=== PATIENT | female | born 1980 | race Caucasian/White ===

== ENCOUNTER 2025-05-13 14:05 | Emergency (ER) | payer OTHER, SELFPAY ==
[2025-05-13] VITALS (14 sets, daily range): BP systolic 111–151; BP diastolic 68–94; PULSE 57–95; RESP 18–20; TEMP 36.3–36.7; O2SAT 92–99; BMI 33.6
--- NOTE | 2025-05-13 14:14 | PC.NURSE ---
Patients FSBS is 89
--- NOTE | 2025-05-13 14:15 | ECG_ITS ---
APPROVED REPORT Exam: Resting ECG HR:81 bpm ECG Measurements Heart Rate 81 AXES AK 159 P 65 QRSd 98 QRS 51 QT 342 T 58 QTc 379 Conclusion SINUS RHYTHM WITH OCCASIONAL VENTRICULAR PREMATURE COMPLEXES No STEMI Electronically signed by : NISHANT PASCAL, 05/14/2025 03:40:36
--- NOTE | 2025-05-13 14:19 | ED_ITS ---
<Statement entered by Sima Pierce DO - 05/14/25 00:23> I was consulted by the SHAKA, and we discussed the complexity of problems being addressed. I approve the treatment and management plan for this patient's care in the emergency department, thus performing a substantial portion of the medical decision making. Sima Pierce DO Discharge Plan Disposition Patient Disposition: Home, Self-Care Referrals Follow up/Referrals: Provider,Referral, MD [Primary Care Provider, Medical] - See instructions Clinical Impressions Clinical Impression: Palpitations, Nausea & vomiting Print Language Print Language: Lithuanian Discharge ED Provider: Francisco Walker <Chanel Bernabe APRN - Last Filed: 05/13/25 21:42> General Chief Complaint: Dizziness Stated Complaint: Cold Sweats;Indegestion; Dry Heaving; Shaking Time Seen by Provider: 05/13/25 14:07 History of Present Illness HPI narrative: Brett rios is a 44-year-old female past medical history significant for type 2 diabetes, neuropathy who presents emergency room today with complaints of epigastric pain, cold sweats, shortness of breath. States her epigastric pain radiates into her back. Symptoms started about an hour prior to arrival. Reports nausea but no vomiting. No diarrhea noted. No abdominal pain per se, just reports of burning in her epigastric/lower chest region. No ripping or tearing sensation anywhere. Stated that she feels like she gets extremely hot and then will become profusely diaphoretic and get chills. Denies any known sick contacts. Does smoke marijuana daily. No family history of sudden cardiac or CAD, no personal history of CAD. Has not had a stress test or an echo done, does not take any blood thinners. Related Data Allergies Allergy/AdvReac Type Severity Reaction Status Date / Time No Known Allergies Allergy Verified 05/13/25 14:46 PFSH <Chanel Bernabe APRN - Last Filed: 05/13/25 21:42> FORMERLY [facility], [facility] Disclaimer: The information contained in this section may have been updated after the patient was seen, as this information can be updated by other users. Social History (Updated 05/13/25 @ 21:41 by Chanel Bernabe APRN) Smoking Status: Current every day smoker alcohol intake: current current occupational status: other Travel in the last 8 weeks?: None Have you lived/traveled outside US in past 30 days?: No Contact w/someone who lives/traveled outside US past 30 days?: No Exposure to someone with infectious disease in past 14 days?: No Do you have a fever (greater than 100.4 F or 38 C)?: No Have you tested positive for COVID-19?: No Exposed to someone with COVID-19 in past 14 days?: No Do you have a sore throat?: No Do you have a cough?: No Do you have any weakness?: No Do you have any diarrhea?: No Are you experiencing any unusual bleeding?: No Do you have any muscle aches/pain?: No Do you have any abdominal pain?: No Are you experiencing loss of taste or smell?: No <Chanel Bernabe APRN - Last Filed: 05/13/25 21:42> ROS Obtained: Yes All systems reviewed & no additional complaints except as documented Physical Exam <Chanel Bernabe APRN - Last Filed: 05/13/25 21:42> General General appearance: alert and in no apparent distress Head Head exam: atraumatic and normocephalic Eye Eye exam: Present PERRL and EOMI Neck Neck exam: Present trachea midline Chest Chest inspection: Present symmetric chest wall rise Respiratory Respiratory exam: Present normal lung sounds bilaterally Cardiovascular Cardiovascular exam: Present regular rate and normal rhythm Abdominal Exam Abdominal exam: Present soft and normal bowel sounds; Absent tenderness Extremities Exam Extremities exam: Present normal inspection and full ROM Neurological Exam Neurological exam: Present alert and oriented X3 Skin Skin exam: Present warm, dry and intact HEART Score <Chanel Bernabe APRN - Last Filed: 05/13/25 21:42> HEART Score HEART Score assessment performed?: Yes HEART Score: 3 <Sima Pierce DO - Last Filed: 05/14/25 00:24> HEART Score HEART Score: 3 Critical Care <Chanel Bernabe APRN - Last Filed: 05/13/25 21:42> Critical Care Time Critical Care Time: No Medical Decision Making <Chanel Bernabe APRN - Last Filed: 05/13/25 21:42> Srinivasan Inquiry Pt receiving controlled substance: No Vital Signs Vital Signs: 05/13/25 14:40 05/13/25 14:43 05/13/25 15:44 Temperature 98.1 F Temperature Source Oral Pulse Rate 82 83 Pulse Rate [Radial] 57 L Respiratory Rate 18 Blood Pressure 144/91 H 138/88 Blood Pressure [Right Arm] 151/94 H Blood Pressure Mean Blood Pressure Mean [Right Arm] 113 Blood Pressure Source [Right Arm] Automatic Cuff Blood Pressure Position [Right Arm] Sitting 02 Sat by Pulse Oximetry 94 L 99 97 Oxygen Delivery Method Room Air 05/13/25 16:00 05/13/25 17:00 05/13/25 17:20 Temperature Temperature Source Pulse Rate 82 77 84 Pulse Rate [Radial] Respiratory Rate Blood Pressure 134/87 118/83 123/82 Blood Pressure [Right Arm] Blood Pressure Mean 102 Blood Pressure Mean [Right Arm] Blood Pressure Source [Right Arm] Blood Pressure Position [Right Arm] 02 Sat by Pulse Oximetry 97 95 92 L Oxygen Delivery Method 05/13/25 17:53 05/13/25 18:42 05/13/25 19:25 Temperature Temperature Source Pulse Rate 82 79 95 H Pulse Rate [Radial] Respiratory Rate Blood Pressure 121/81 121/81 121/74 Blood Pressure [Right Arm] Blood Pressure Mean Blood Pressure Mean [Right Arm] Blood Pressure Source [Right Arm] Blood Pressure Position [Right Arm] 02 Sat by Pulse Oximetry 94 L 93 L 96 Oxygen Delivery Method 05/13/25 19:38 05/13/25 20:00 05/13/25 21:00 Temperature Temperature Source Pulse Rate 87 68 74 Pulse Rate [Radial] Respiratory Rate Blood Pressure 129/81 121/75 111/68 Blood Pressure [Right Arm] Blood Pressure Mean 77 Blood Pressure Mean [Right Arm] Blood Pressure Source [Right Arm] Blood Pressure Position [Right Arm] 02 Sat by Pulse Oximetry 96 94 L 96 Oxygen Delivery Method Room Air Room Air 05/13/25 21:21 05/13/25 21:36 Temperature 97.4 F L Temperature Source Pulse Rate 80 87 Pulse Rate [Radial] Respiratory Rate 20 Blood Pressure 135/84 135/84 Blood Pressure [Right Arm] Blood Pressure Mean 101 Blood Pressure Mean [Right Arm] Blood Pressure Source [Right Arm] Blood Pressure Position [Right Arm] 02 Sat by Pulse Oximetry 98 Oxygen Delivery Method Room Air Lab Data Labs: Lab Results 05/13/25 15:40: WBC 13.2 H, RBC 4.95, Hgb 14.4, Hct 43.8, MCV 88.5, MCH 29.1, MCHC 32.9, RDW 13.3, Plt Count 296, MPV 8.8, Neut % (Auto) 85.9 H, Lymph % (Auto) 8.8 L, [place] % (Auto) 4.1, Eos % (Auto) 0.2, Baso % (Auto) 0.4, Neut # (Auto) 11.3 H, Lymph # (Auto) 1.2, [place] # (Auto) 0.5, Eos # (Auto) 0.0, Baso # (Auto) 0.1, Sodium 137, Potassium 4.4, Chloride 99, Carbon Dioxide 29, Anion Gap 13.4, BUN 7, Creatinine 0.60, Estimated Creat Clear 180, Estimated GFR 108, Est GFR ( Amer) 130, Glucose 293 H, Calcium 9.7, Magnesium 1.7, Total Bilirubin 0.5, AST 26, ALT 21, Alkaline Phosphatase 124, Troponin I < 0.01, NT-Pro-B Natriuret Pep < 20.0, Total Protein 8.2, Albumin 4.5, Globulin 3.7 H, Albumin/Globulin Ratio 1.2, Lipase 27 05/13/25 17:16: Troponin I < 0.01 05/13/25 18:00: Urine Color Yellow, Urine Appearance Clear, Urine pH 5.5, Ur Specific [place] 1.020, Urine Protein Negative, Urine Glucose (UA) 3+, Urine Ketones 1+, Urine Blood 3+ A, Urine Nitrate Negative, Urine Bilirubin Negative, Urine Urobilinogen 0.2, Ur Leukocyte Esterase Negative, Urine RBC 5-10, Urine WBC Occasional, Ur Squamous Epith Cells Occasional, Urine Bacteria 1+, Urine Mucus 1+ 05/13/25 15:40 05/13/25 15:40 Response Orders (Tests/Meds): ED MEDICATIONS Discontinued Medications Generic Name Dose Route Start Last Admin Trade Name Gilmarq PRN Reason Stop Dose Admin Aspirin 325 mg 05/13/25 14:25 05/13/25 16:01 Aspirin 325mg Tablet PO 05/13/25 14:26 325 mg ONCE ONE Administration Diphenhydramine HCl 25 mg 05/13/25 15:50 05/13/25 15:59 Diphenhydramine 50mg/Ml Vial IV 05/13/25 15:51 25 mg ONCE ONE Administration Sodium Chloride 1,000 mls @ 999 mls/hr 05/13/25 19:50 05/13/25 20:59 Sod Chlor 0.9% 1000ml Bag IV 05/13/25 20:50 Infused .Q1H1M ONE Infusion Iopamidol 80 ml 05/13/25 16:41 05/13/25 16:42 Iopamidol-370 (76%);100ml Bottle IV 05/13/25 16:42 80 ml ONCE ONE Administration Iopamidol 70 ml 05/13/25 19:27 05/13/25 19:28 Iopamidol-370 (76%);100ml Bottle IV 05/13/25 19:28 70 ml ONCE ONE Administration Ondansetron HCl 4 mg 05/13/25 14:25 05/13/25 15:51 Ondansetron 4mg/2ml Vial IV 05/13/25 14:26 Not Given ONCE ONE Prochlorperazine Edisylate 5 mg 05/13/25 15:49 05/13/25 16:01 Prochlorperazine 10mg/2ml Vial IV 05/13/25 15:50 5 mg ONCE ONE Administration Sodium Chloride 50 ml 05/13/25 16:41 05/13/25 16:42 0.9 % Sodium Chloride 50 Ml Vial IV 05/13/25 16:42 50 ml ONCE ONE Administration Sodium Chloride 10 ml 05/13/25 16:41 05/13/25 16:42 Sodium Chloride 0.9% 10ml Syr (Rad Only) IV 06/12/25 16:40 10 ml NEEDED PRN Administration Maintain IV Site Sodium Chloride 40 ml 05/13/25 19:27 05/13/25 19:28 0.9 % Sodium Chloride 50 Ml Vial IV 05/13/25 19:28 40 ml ONCE ONE Administration Sodium Chloride 10 ml 05/13/25 19:27 05/13/25 19:28 Sodium Chloride 0.9% 10ml Syr (Rad Only) IV 06/12/25 19:26 10 ml NEEDED PRN Administration Maintain IV Site ORDERS Category Date Time Status CTA Chest [CT angio chest - dissection] Stat Cat Scan 05/13/25 14:58 Completed CTA Chest [CT angio chest PE protocol] Stat Cat Scan 05/13/25 19:07 Completed BNP [NT Pro Brain Natriuretic Pep.] Stat Lab 05/13/25 15:40 Completed CBC w/Auto Diff [Complete Blood Count Auto Diff] Stat Lab 05/13/25 15:40 Completed CMP [Comprehensive Metabolic Panel] Stat Lab 05/13/25 15:40 Completed Lipase Stat Lab 05/13/25 15:40 Completed MAG [Magnesium] Stat Lab 05/13/25 15:40 Completed Trop I [Troponin I] Stat Lab 05/13/25 15:40 Completed Troponin I Q3H Lab 05/13/25 17:16 Completed UA [Urinalysis and Microscopic] Stat Lab 05/13/25 18:00 Completed MDM Narrative Medical Decision Narrative: In summary patient is an 44-year-old female who presents emergency department for evaluation of epigastric pain, shortness of breath, diaphoresis and chills. Patient is hemodynamically stable, heart rate sinus rhythm on the monitor, not tachypneic upon arrival, afebrile. Unremarkable nonfocal exam, no abdominal pain with palpation. Differential diagnosis includes ACS, pneumonia, pulmonary embolism, gastritis. Initial workup will be conducted with hematologic labs, EKG, UA, CTA of the chest. Initial interventions include antiemetics. Francisco Walker: I was consulted by the SHAKA, and we discussed the complexity of the problems being addressed. I approved the treatment and management plan for this patient's care in the emergency department, thus performing a substantive portion of the medical decision making. Francisco Walker: Procedure: Procedure performed was ultrasound-guided IV placement. Procedure performed by Francisco Walker. Using real-time ultrasound guidance the basilic vein was cannulated with a long peripheral 18 gauge IV. The vessel cannulated was patent. Images were not saved to permanent archive. Patient tolerated the procedure well. There were no immediate complications. Initial workup reviewed by de hematologic labs showed a mildly elevated white count at 13,000, likely reactive to her nausea and vomiting she had. No other sources of infection noted at this time, negative for acute cystitis, no pneumonia noted. Initial CTA of the chest ruled out dissection, however, there was a few filling defects in the left upper lobe that the radiologist was unable to completely rule out a PE. After discussion with radiologist, he stated that the contrast bolus was suboptimal and that was likely the reason for these filling defects. Discussed these findings with the patient and she preferred to just repeat the CT study as she would prefer not to go home on empiric blood thinners. Repeat CTA of the chest was done, did not show any evidence of PE. EKG without ST elevation. Upon repeat evaluation patient had acceptable resolution of nausea and vomiting. No chills were noted at this time. Patient states she felt much better and was ready to be discharged home.. Given this patient is medically stable and appropriate discharge at this time. She should follow-up with her primary care physician as needed. Return precautions were given and patient verbalized understanding. <Francisco Walker MD - Last Filed: 05/13/25 15:58> Vital Signs Vital Signs: 05/13/25 14:40 05/13/25 14:43 05/13/25 15:44 Temperature 98.1 F Temperature Source Oral Pulse Rate 82 83 Pulse Rate [Radial] 57 L Respiratory Rate 18 Blood Pressure 144/91 H 138/88 Blood Pressure [Right Arm] 151/94 H Blood Pressure Mean Blood Pressure Mean [Right Arm] 113 Blood Pressure Source [Right Arm] Automatic Cuff Blood Pressure Position [Right Arm] Sitting 02 Sat by Pulse Oximetry 94 L 99 97 Oxygen Delivery Method Room Air 05/13/25 16:00 05/13/25 17:00 05/13/25 17:20 Temperature Temperature Source Pulse Rate 82 77 84 Pulse Rate [Radial] Respiratory Rate Blood Pressure 134/87 118/83 123/82 Blood Pressure [Right Arm] Blood Pressure Mean 102 Blood Pressure Mean [Right Arm] Blood Pressure Source [Right Arm] Blood Pressure Position [Right Arm] 02 Sat by Pulse Oximetry 97 95 92 L Oxygen Delivery Method 05/13/25 17:53 05/13/25 18:42 05/13/25 19:25 Temperature Temperature Source Pulse Rate 82 79 95 H Pulse Rate [Radial] Respiratory Rate Blood Pressure 121/81 121/81 121/74 Blood Pressure [Right Arm] Blood Pressure Mean Blood Pressure Mean [Right Arm] Blood Pressure Source [Right Arm] Blood Pressure Position [Right Arm] 02 Sat by Pulse Oximetry 94 L 93 L 96 Oxygen Delivery Method 05/13/25 19:38 05/13/25 20:00 05/13/25 21:00 Temperature Temperature Source Pulse Rate 87 68 74 Pulse Rate [Radial] Respiratory Rate Blood Pressure 129/81 121/75 111/68 Blood Pressure [Right Arm] Blood Pressure Mean 77 Blood Pressure Mean [Right Arm] Blood Pressure Source [Right Arm] Blood Pressure Position [Right Arm] 02 Sat by Pulse Oximetry 96 94 L 96 Oxygen Delivery Method Room Air Room Air 05/13/25 21:21 05/13/25 21:36 Temperature 97.4 F L Temperature Source Pulse Rate 80 87 Pulse Rate [Radial] Respiratory Rate 20 Blood Pressure 135/84 135/84 Blood Pressure [Right Arm] Blood Pressure Mean 101 Blood Pressure Mean [Right Arm] Blood Pressure Source [Right Arm] Blood Pressure Position [Right Arm] 02 Sat by Pulse Oximetry 98 Oxygen Delivery Method Room Air Lab Data Labs: Lab Results 05/13/25 15:40: WBC 13.2 H, RBC 4.95, Hgb 14.4, Hct 43.8, MCV 88.5, MCH 29.1, MCHC 32.9, RDW 13.3, Plt Count 296, MPV 8.8, Neut % (Auto) 85.9 H, Lymph % (Auto) 8.8 L, [place] % (Auto) 4.1, Eos % (Auto) 0.2, Baso % (Auto) 0.4, Neut # (Auto) 11.3 H, Lymph # (Auto) 1.2, [place] # (Auto) 0.5, Eos # (Auto) 0.0, Baso # (Auto) 0.1, Sodium 137, Potassium 4.4, Chloride 99, Carbon Dioxide 29, Anion Gap 13.4, BUN 7, Creatinine 0.60, Estimated Creat Clear 180, Estimated GFR 108, Est GFR ( Amer) 130, Glucose 293 H, Calcium 9.7, Magnesium 1.7, Total Bilirubin 0.5, AST 26, ALT 21, Alkaline Phosphatase 124, Troponin I < 0.01, NT-Pro-B Natriuret Pep < 20.0, Total Protein 8.2, Albumin 4.5, Globulin 3.7 H, Albumin/Globulin Ratio 1.2, Lipase 27 05/13/25 17:16: Troponin I < 0.01 05/13/25 18:00: Urine Color Yellow, Urine Appearance Clear, Urine pH 5.5, Ur Specific [place] 1.020, Urine Protein Negative, Urine Glucose (UA) 3+, Urine Ketones 1+, Urine Blood 3+ A, Urine Nitrate Negative, Urine Bilirubin Negative, Urine Urobilinogen 0.2, Ur Leukocyte Esterase Negative, Urine RBC 5-10, Urine WBC Occasional, Ur Squamous Epith Cells Occasional, Urine Bacteria 1+, Urine Mucus 1+ Response Orders (Tests/Meds): ED MEDICATIONS Discontinued Medications Generic Name Dose Route Start Last Admin Trade Name Darius PRN Reason Stop Dose Admin Aspirin 325 mg 05/13/25 14:25 05/13/25 16:01 Aspirin 325mg Tablet PO 05/13/25 14:26 325 mg ONCE ONE Administration Diphenhydramine HCl 25 mg 05/13/25 15:50 05/13/25 15:59 Diphenhydramine 50mg/Ml Vial IV 05/13/25 15:51 25 mg ONCE ONE Administration Sodium Chloride 1,000 mls @ 999 mls/hr 05/13/25 19:50 05/13/25 20:59 Sod Chlor 0.9% 1000ml Bag IV 05/13/25 20:50 Infused .Q1H1M ONE Infusion Iopamidol 80 ml 05/13/25 16:41 05/13/25 16:42 Iopamidol-370 (76%);100ml Bottle IV 05/13/25 16:42 80 ml ONCE ONE Administration Iopamidol 70 ml 05/13/25 19:27 05/13/25 19:28 Iopamidol-370 (76%);100ml Bottle IV 05/13/25 19:28 70 ml ONCE ONE Administration Ondansetron HCl 4 mg 05/13/25 14:25 05/13/25 15:51 Ondansetron 4mg/2ml Vial IV 05/13/25 14:26 Not Given ONCE ONE Prochlorperazine Edisylate 5 mg 05/13/25 15:49 05/13/25 16:01 Prochlorperazine 10mg/2ml Vial IV 05/13/25 15:50 5 mg ONCE ONE Administration Sodium Chloride 50 ml 05/13/25 16:41 05/13/25 16:42 0.9 % Sodium Chloride 50 Ml Vial IV 05/13/25 16:42 50 ml ONCE ONE Administration Sodium Chloride 10 ml 05/13/25 16:41 05/13/25 16:42 Sodium Chloride 0.9% 10ml Syr (Rad Only) IV 06/12/25 16:40 10 ml NEEDED PRN Administration Maintain IV Site Sodium Chloride 40 ml 05/13/25 19:27 05/13/25 19:28 0.9 % Sodium Chloride 50 Ml Vial IV 05/13/25 19:28 40 ml ONCE ONE Administration Sodium Chloride 10 ml 05/13/25 19:27 05/13/25 19:28 Sodium Chloride 0.9% 10ml Syr (Rad Only) IV 06/12/25 19:26 10 ml NEEDED PRN Administration Maintain IV Site ORDERS Category Date Time Status CTA Chest [CT angio chest - dissection] Stat Cat Scan 05/13/25 14:58 Completed CTA Chest [CT angio chest PE protocol] Stat Cat Scan 05/13/25 19:07 Completed BNP [NT Pro Brain Natriuretic Pep.] Stat Lab 05/13/25 15:40 Completed CBC w/Auto Diff [Complete Blood Count Auto Diff] Stat Lab 05/13/25 15:40 Completed CMP [Comprehensive Metabolic Panel] Stat Lab 05/13/25 15:40 Completed Lipase Stat Lab 05/13/25 15:40 Completed MAG [Magnesium] Stat Lab 05/13/25 15:40 Completed Trop I [Troponin I] Stat Lab 05/13/25 15:40 Completed Troponin I Q3H Lab 05/13/25 17:16 Completed UA [Urinalysis and Microscopic] Stat Lab 05/13/25 18:00 Completed ECG Data Tracing #1: ECG Narrative: Independently turbid by me rate is 81, rhythm is regular, axis is normal, no ST elevation or depression in anatomical contiguous leads, QTc 379. MDM Narrative Medical Decision Narrative: In summary patient is an 44-year-old female who presents emergency department for evaluation of epigastric pain, shortness of breath, diaphoresis and chills. Patient is hemodynamically stable, heart rate sinus rhythm on the monitor, not tachypneic upon arrival, afebrile. Unremarkable nonfocal exam, no abdominal pain with palpation. Differential diagnosis includes ACS, pneumonia, pulmonary embolism, gastritis. Initial workup will be conducted with hematologic labs, EKG, UA, CTA of the chest. Initial interventions include antiemetics. Francisco Walker: I was consulted by the SHAKA, and we discussed the complexity of the problems being addressed. I approved the treatment and management plan for this patient's care in the emergency department, thus performing a substantive portion of the medical decision making. Francisco Walker: Procedure: Procedure performed was ultrasound-guided IV placement. Procedure performed by Francisco Walker. Using real-time ultrasound guidance the basilic vein was cannulated with a long peripheral 18 gauge IV. The vessel cannulated was patent. Images were not saved to permanent archive. Patient tolerated the procedure well. There were no immediate complications. Initial workup reviewed by me [hematologic labs remarkable for? Imaging remarkable for? Urinalysis interpreted by me and remarkable for]. Upon repeat evaluation [patient had acceptable resolution of symptoms, had persistent pain for which additional events were conducted (describe interventions), tolerated p.o., was ambulatory, etc.]. Given this [patient is appropriate for discharge at this time will be discharged with a prescription for? The case was discussed with hospital medicine regarding management they will meet the patient in the service for continued evaluation at this time? Etc.] Places where you can increase complexity: I informally interpreted the patient's chest x-ray or CT read and is remarkable for? Documenting what the nurse monitoring shows with rate, rhythm, time interpreted Consideration of a test but deferring. Example: I consider chest x-ray on this patient however given they have no oxygen requirement are clear to auscultation all lung cabral would be deferred. Social determinants of health: Given that patient is undomiciled increases complexity, given the patient has polysubstance abuse compounds all aspects of care. <Sima Pierce, DO - Last Filed: 05/14/25 00:24> Vital Signs Vital Signs: 05/13/25 14:40 05/13/25 14:43 05/13/25 15:44 Temperature 98.1 F Temperature Source Oral Pulse Rate 82 83 Pulse Rate [Radial] 57 L Respiratory Rate 18 Blood Pressure 144/91 H 138/88 Blood Pressure [Right Arm] 151/94 H Blood Pressure Mean Blood Pressure Mean [Right Arm] 113 Blood Pressure Source [Right Arm] Automatic Cuff Blood Pressure Position [Right Arm] Sitting 02 Sat by Pulse Oximetry 94 L 99 97 Oxygen Delivery Method Room Air 05/13/25 16:00 05/13/25 17:00 05/13/25 17:20 Temperature Temperature Source Pulse Rate 82 77 84 Pulse Rate [Radial] Respiratory Rate Blood Pressure 134/87 118/83 123/82 Blood Pressure [Right Arm] Blood Pressure Mean 102 Blood Pressure Mean [Right Arm] Blood Pressure Source [Right Arm] Blood Pressure Position [Right Arm] 02 Sat by Pulse Oximetry 97 95 92 L Oxygen Delivery Method 05/13/25 17:53 05/13/25 18:42 05/13/25 19:25 Temperature Temperature Source Pulse Rate 82 79 95 H Pulse Rate [Radial] Respiratory Rate Blood Pressure 121/81 121/81 121/74 Blood Pressure [Right Arm] Blood Pressure Mean Blood Pressure Mean [Right Arm] Blood Pressure Source [Right Arm] Blood Pressure Position [Right Arm] 02 Sat by Pulse Oximetry 94 L 93 L 96 Oxygen Delivery Method 05/13/25 19:38 05/13/25 20:00 05/13/25 21:00 Temperature Temperature Source Pulse Rate 87 68 74 Pulse Rate [Radial] Respiratory Rate Blood Pressure 129/81 121/75 111/68 Blood Pressure [Right Arm] Blood Pressure Mean 77 Blood Pressure Mean [Right Arm] Blood Pressure Source [Right Arm] Blood Pressure Position [Right Arm] 02 Sat by Pulse Oximetry 96 94 L 96 Oxygen Delivery Method Room Air Room Air 05/13/25 21:21 05/13/25 21:36 Temperature 97.4 F L Temperature Source Pulse Rate 80 87 Pulse Rate [Radial] Respiratory Rate 20 Blood Pressure 135/84 135/84 Blood Pressure [Right Arm] Blood Pressure Mean 101 Blood Pressure Mean [Right Arm] Blood Pressure Source [Right Arm] Blood Pressure Position [Right Arm] 02 Sat by Pulse Oximetry 98 Oxygen Delivery Method Room Air Lab Data Labs: Lab Results 05/13/25 15:40: WBC 13.2 H, RBC 4.95, Hgb 14.4, Hct 43.8, MCV 88.5, MCH 29.1, MCHC 32.9, RDW 13.3, Plt Count 296, MPV 8.8, Neut % (Auto) 85.9 H, Lymph % (Auto) 8.8 L, [place] % (Auto) 4.1, Eos % (Auto) 0.2, Baso % (Auto) 0.4, Neut # (Auto) 11.3 H, Lymph # (Auto) 1.2, [place] # (Auto) 0.5, Eos # (Auto) 0.0, Baso # (Auto) 0.1, Sodium 137, Potassium 4.4, Chloride 99, Carbon Dioxide 29, Anion Gap 13.4, BUN 7, Creatinine 0.60, Estimated Creat Clear 180, Estimated GFR 108, Est GFR ( Amer) 130, Glucose 293 H, Calcium 9.7, Magnesium 1.7, Total Bilirubin 0.5, AST 26, ALT 21, Alkaline Phosphatase 124, Troponin I < 0.01, NT-Pro-B Natriuret Pep < 20.0, Total Protein 8.2, Albumin 4.5, Globulin 3.7 H, Albumin/Globulin Ratio 1.2, Lipase 27 05/13/25 17:16: Troponin I < 0.01 05/13/25 18:00: Urine Color Yellow, Urine Appearance Clear, Urine pH 5.5, Ur Specific [place] 1.020, Urine Protein Negative, Urine Glucose (UA) 3+, Urine Ketones 1+, Urine Blood 3+ A, Urine Nitrate Negative, Urine Bilirubin Negative, Urine Urobilinogen 0.2, Ur Leukocyte Esterase Negative, Urine RBC 5-10, Urine WBC Occasional, Ur Squamous Epith Cells Occasional, Urine Bacteria 1+, Urine Mucus 1+ Response Orders (Tests/Meds): ED MEDICATIONS Discontinued Medications Generic Name Dose Route Start Last Admin Trade Name Freq PRN Reason Stop Dose Admin Aspirin 325 mg 05/13/25 14:25 05/13/25 16:01 Aspirin 325mg Tablet PO 05/13/25 14:26 325 mg ONCE ONE Administration Diphenhydramine HCl 25 mg 05/13/25 15:50 05/13/25 15:59 Diphenhydramine 50mg/Ml Vial IV 05/13/25 15:51 25 mg ONCE ONE Administration Sodium Chloride 1,000 mls @ 999 mls/hr 05/13/25 19:50 05/13/25 20:59 Sod Chlor 0.9% 1000ml Bag IV 05/13/25 20:50 Infused .Q1H1M ONE Infusion Iopamidol 80 ml 05/13/25 16:41 05/13/25 16:42 Iopamidol-370 (76%);100ml Bottle IV 05/13/25 16:42 80 ml ONCE ONE Administration Iopamidol 70 ml 05/13/25 19:27 05/13/25 19:28 Iopamidol-370 (76%);100ml Bottle IV 05/13/25 19:28 70 ml ONCE ONE Administration Ondansetron HCl 4 mg 05/13/25 14:25 05/13/25 15:51 Ondansetron 4mg/2ml Vial IV 05/13/25 14:26 Not Given ONCE ONE Prochlorperazine Edisylate 5 mg 05/13/25 15:49 05/13/25 16:01 Prochlorperazine 10mg/2ml Vial IV 05/13/25 15:50 5 mg ONCE ONE Administration Sodium Chloride 50 ml 05/13/25 16:41 05/13/25 16:42 0.9 % Sodium Chloride 50 Ml Vial IV 05/13/25 16:42 50 ml ONCE ONE Administration Sodium Chloride 10 ml 05/13/25 16:41 05/13/25 16:42 Sodium Chloride 0.9% 10ml Syr (Rad Only) IV 06/12/25 16:40 10 ml NEEDED PRN Administration Maintain IV Site Sodium Chloride 40 ml 05/13/25 19:27 05/13/25 19:28 0.9 % Sodium Chloride 50 Ml Vial IV 05/13/25 19:28 40 ml ONCE ONE Administration Sodium Chloride 10 ml 05/13/25 19:27 05/13/25 19:28 Sodium Chloride 0.9% 10ml Syr (Rad Only) IV 06/12/25 19:26 10 ml NEEDED PRN Administration Maintain IV Site ORDERS Category Date Time Status CTA Chest [CT angio chest - dissection] Stat Cat Scan 05/13/25 14:58 Completed CTA Chest [CT angio chest PE protocol] Stat Cat Scan 05/13/25 19:07 Completed BNP [NT Pro Brain Natriuretic Pep.] Stat Lab 05/13/25 15:40 Completed CBC w/Auto Diff [Complete Blood Count Auto Diff] Stat Lab 05/13/25 15:40 Completed CMP [Comprehensive Metabolic Panel] Stat Lab 05/13/25 15:40 Completed Lipase Stat Lab 05/13/25 15:40 Completed MAG [Magnesium] Stat Lab 05/13/25 15:40 Completed Trop I [Troponin I] Stat Lab 05/13/25 15:40 Completed Troponin I Q3H Lab 05/13/25 17:16 Completed UA [Urinalysis and Microscopic] Stat Lab 05/13/25 18:00 Completed
--- NOTE | 2025-05-13 14:58 | CT_ITS ---
PROCEDURE INFORMATION: Exam: CTA Chest With Contrast Exam date and time: 05/13/2025 4:41 PM Age: 44 years old Clinical indication: Pain; Chest pressure; Additional info: Epigastric pain radiating to back, short of breath TECHNIQUE: Imaging protocol: Computed tomographic angiography of the chest with contrast. Exam focused on the arteries. 3D rendering (Not supervised by radiologist): MIP and/or 3D reconstructed images were created by the technologist. Radiation optimization: All CT scans at this facility use at least one of these dose optimization techniques: automated exposure control; mA and/or kV adjustment per patient size (includes targeted exams where dose is matched to clinical indication); or iterative reconstruction. Contrast material: ISOVUE; Contrast volume: 80 ml; Contrast route: INTRAVENOUS (IV); COMPARISON: No relevant prior studies available. FINDINGS: Limitations: Timing of the contrast bolus is adequate to evaluate for central or segmental pulmonary embolism. Evaluation for more distal subsegmental pulmonary emboli is limited. Pulmonary arteries: No CT evidence for central pulmonary embolism. Areas of decreased density is present within segmental branches extending into the left upper lobe pulmonary artery which may correspond to artifact or small pulmonary embolism. No other definitive evidence of a segmental pulmonary embolism. Evaluation for subsegmental pulmonary emboli is limited on this exam. Aorta: Normal caliber of the ascending and descending thoracic aorta. No evidence for dissection. Visualized portion of the upper abdominal aorta appears unremarkable. Thyroid: Thyroid gland appears unremarkable. Trachea: Central airways are clear. No bronchiectasis. Lungs: Bandlike atelectatic changes are present within the anterior aspect of the left lower lobe. Minimal atelectatic change within the lingula. Minimal linear atelectatic changes present within the medial segment of the right middle lobe. Small areas of paraseptal emphysematous change or small blebs are present within the right upper lobe and along the periphery of the posterior left upper lobe. No suspicious pulmonary nodule or mass. No suspicious airspace consolidation. Pleural spaces: No pleural effusion. No pneumothorax. Heart: Borderline cardiomegaly. No pericardial effusion. No coronary artery calcifications are identified. Heart RV/LV ratio: 0.87 Lymph nodes: There are no enlarged or suspicious supraclavicular lymph nodes. No mediastinal lymphadenopathy, mass or fluid collection. No hilar mass or suspicious lymphadenopathy. No suspicious lymphadenopathy within the upper abdomen. Liver: Diffuse decreased density throughout the visualized portion of the liver in keeping with hepatic steatosis. The liver is enlarged. Gallbladder and biliary ducts: Partial visualization of postsurgical change from prior cholecystectomy. Visualized portion of the common bile duct appears unremarkable. Pancreas: Visualized course of the pancreas appears unremarkable. Spleen: Spleen appears unremarkable. Adrenal glands: 13 mm low-density left adrenal nodule. Additional 13 mm nodule is present along the inferior aspect of the lateral limb of the left adrenal gland. Right adrenal gland appears unremarkable. Kidneys: Visualized portion of the right and left kidney appear unremarkable. Bones/joints: There are no suspicious lytic or sclerotic bone lesions. Multilevel [id number] degenerative changes are present throughout the cervical and thoracic spine. No fracture. Arthritic changes are present at the right and left sternoclavicular joint. Soft tissues: No axillary mass or lymphadenopathy. IMPRESSION: 1. Potential short segment filling defects within 2 small segmental branches within the left upper lobe pulmonary artery. Findings may correspond to artifact or small pulmonary embolism. Timing of the contrast bolus is suboptimal. Short interval repeat imaging should be considered. Main pulmonary artery is normal in caliber. There is no evidence of right heart strain. 2. Borderline cardiomegaly. Please correlate with any history of hypertension. 3. No pericardial effusion. Normal caliber of the ascending and descending thoracic aorta. No evidence for dissection. 4. No pleural effusion or pneumothorax. 5. Hepatic steatosis. Status post prior cholecystectomy. 6. There are two 13 mm low-density left adrenal nodules. Adrenal adenomas are more likely. Please correlate with any prior history of malignancy. In the setting of any known prior malignancy, non-emergent CT with adrenal washout protocol is recommended. (Reference: Abbie) In a patient with no cancer history, consider 12 month follow-up adrenal CT. (Reference: Abbie) REFERENCES: 1. Abbie BARTON et al. Management of Incidental Adrenal Masses: A White Paper of the ACR Incidental Findings Committee. J Am Jerel Radiol. 2017;14(8):1290-7962. 2. Abbie BARTON et al. Management of Incidental Adrenal Masses: A White Paper of the ACR Incidental Findings Committee. J Am Jerel Radiol. 2017;14(8):3331-5138.
[2025-05-13 15:52] LABS: Hematocrit 43.8 % (37.0-47.0); Hemoglobin 14.4 g/dL (12.2-16.2); Immature Granulocytes % 0.6 %; Mean Corpuscular HGB Conc 32.9 g/dL (31.8-35.4); Mean Corpuscular Hemoglobin 29.1 pg (27.0-31.2); Mean Corpuscular Volume 88.5 fl (81-99); Nucleated Red Blood Cells % 0 %; Platelet Count 296 K/mm3 (142-424); Red Blood Count 4.95 M/mm3 (4.20-5.40); Red Cell Distribution Width-SD 43.1 fL; White Blood Count 13.2 K/mm3 (4.8-10.8)
[2025-05-13] MEDS: ASPIRIN 325MG TABLET 325 MG PO (16:01)
[2025-05-13] MEDS: PROCHLORPERAZINE 10MG/2ML VIAL 5 MG IV (16:01)
[2025-05-13 16:05] LABS: Albumin Level 4.5 g/dl (3.5-5.0); Chloride 99 mmol/L (98-107); Potassium 4.4 mmoL/L (3.5-5.1); Sodium 137 mmol/L (136-145)
[2025-05-13 16:08] LABS: Alanine Aminotransferase 21 U/L (12-78); Albumin/Globulin Ratio 1.2 (1.1-1.8); Alkaline Phosphatase 124 U/L (38-126); Anion Gap 13.4 mEq/L (5-15); Aspartate Amino Transferase 26 U/L (14-36); Bilirubin,Total 0.5 mg/dl (0.2-1.3); Blood Urea Nitrogen 7 mg/dl (7-17); Calcium 9.7 mg/dl (8.4-10.2); Carbon Dioxide 29 mmol/L (22.0-30.0); Creatinine Clearance Estimated 180 mL/min (50-200); Creatinine,Serum 0.60 mg/dl (0.52-1.04); Estimated Glomerular Filt Rate 108 ml/min (>60); GFR (African American) 130 ML/MIN (>60); Globulin 3.7 g/dL (1.3-3.2); Glucose 293 mg/dl (74-100); Lipase 27 U/L (23-300); Total Protein,Serum 8.2 g/dl (6.3-8.2)
[2025-05-13 16:09] LABS: Magnesium 1.7 mg/dl (1.6-2.3)
[2025-05-13 16:24] LABS: NT Pro Brain Natriuretic Pep. < 20.0 pg/mL (0-125)
[2025-05-13 16:35] LABS: Troponin I < 0.01 ng/ml (0.00-0.034)
[2025-05-13] MEDS: SODIUM CHLORIDE 0.9% 10ML SYR (RAD ONLY) 10 ML IV ×2 (16:42→19:28)
[2025-05-13] MEDS: 0.9 % SODIUM CHLORIDE 50 ML VIAL IV (16:42)
[2025-05-13] MEDS: IOPAMIDOL-370 (76%);100ML BOTTLE 80 ML IV (16:42)
[2025-05-13 17:54] LABS: Troponin I < 0.01 ng/ml (0.00-0.034)
[2025-05-13 18:05] LABS: Bilirubin,Urine Negative (Negative); Color,Urine YELLOW (Yellow); Glucose,Urine (UA) 3+ (Negative); Ketones,Urine 1+ (Negative); Leukocyte Esterase,Urine Negative (Negative); Microscopic, Urine URINE MICROSCOPIC (MICROSCOPIC); PH,Urine 5.5 (5.0-8.5); Protein,Urine Negative (Negative); Specific Gravity, Urine 1.020 (1.005-1.030); Urobilinogen,Urine 0.2 EU/dl (0.2)
[2025-05-13 18:10] LABS: WBC,Urine Occasional #/hpf (0-3)
[2025-05-13 18:11] LABS: Bacteria,Urine 1+ /lpf; Mucus,Urine 1+ /lpf; Squamous Epithelial Cell,Urine Occasional #/hpf (0-5)
--- NOTE | 2025-05-13 19:07 | CT_ITS ---
PROCEDURE INFORMATION: Exam: CTA Chest With Contrast Exam date and time: 05/13/2025 7:17 PM Age: 44 years old Clinical indication: Abnormal findings; Abnormal radiologic exam of lung or chest; Additional info: R/O blood clot TECHNIQUE: Imaging protocol: Computed tomographic angiography of the chest with contrast. Exam focused on the arteries. 3D rendering (Not supervised by radiologist): MIP and/or 3D reconstructed images were created by the technologist. Radiation optimization: All CT scans at this facility use at least one of these dose optimization techniques: automated exposure control; mA and/or kV adjustment per patient size (includes targeted exams where dose is matched to clinical indication); or iterative reconstruction. Contrast material: ISOUVE 370; Contrast volume: 70 ml; Contrast route: INTRAVENOUS (IV); COMPARISON: CT ANGIO CHEST 05/13/2025 4:41 PM FINDINGS: Pulmonary arteries: No PE identified. No definite PE identified in the area of concern in the left upper lobe. Sensitivity for subsegmental PE may be limited due to motion artifact. Aorta: Unremarkable. No aortic aneurysm. No aortic dissection. Lungs: Bilateral mild fibro atelectatic changes in the lower lung cabral redemonstrated. Pleural spaces: Unremarkable. No pneumothorax. No pleural effusion. Heart: Unremarkable. No cardiomegaly. No pericardial effusion. Lymph nodes: Unremarkable. No enlarged lymph nodes. Adrenal glands: Left adrenal nodules redemonstrated largest measuring 16 mm. Bones/joints: Unremarkable. No acute fracture. Soft tissues: Unremarkable. IMPRESSION: 1. No PE identified. No definite PE identified in the area of concern in the left upper lobe. Sensitivity for subsegmental PE may be limited due to motion artifact. 2. Left adrenal nodules largest measuring 16 mm. In a patient with no cancer history, consider 12 month follow-up adrenal CT. (Reference: Abbie) REFERENCES: Abbie BARTON, et al. Management of Incidental Adrenal Masses: A White Paper of the ACR Incidental Findings Committee. J Am Jerel Radiol. 2017;14(8):8497-0242.
[2025-05-13] MEDS: IOPAMIDOL-370 (76%);100ML BOTTLE 70 ML IV (19:28)
[2025-05-13] MEDS: 0.9 % SODIUM CHLORIDE 50 ML VIAL 40 ML IV (19:28)
[2025-05-13] MEDS: 0.9 % SODIUM CHLORIDE 1000ML 1,000 ML 999 ML IV (19:54)
== END 2025-05-13 21:42 | disposition home or self-care (01) ==
PROVIDERS: Nurse Practitioner Acute Care; Emergency Provider Emergency Medicine
DX: R10.13 Epigastric pain (principal); R00.2 Palpitations; R06.02 Shortness of breath; R11.2 Nausea with vomiting, unspecified; F17.210 Nicotine dependence, cigarettes, uncomplicated; E11.65 Type 2 diabetes mellitus with hyperglycemia; E11.40 Type 2 diabetes mellitus with diabetic neuropathy, unspecified
CPT/HCPCS: 71275; 80053; 81001; 83690; 83735; 83880; 84484; 85025; 93005; 96361; 96374; 96375; 99285; J0780; J1200; J7030; Q9967